=== PATIENT | male | born 1995 | race Caucasian/White ===

== ENCOUNTER 2025-03-09 04:55 | Inpatient (IN) | payer OTHER, SELFPAY ==
[2025-03-09] VITALS (17 sets, daily range): BP systolic 91–121; BP diastolic 56–79; PULSE 64–97; RESP 11–20; TEMP 36.2–37.1; O2SAT 92–99; BMI 35.8
--- NOTE | ~2025-03-09 | CT_ITS ---
CLINICAL HISTORY: fall, facial trauma CT maxillofacial without contrast Comparison: None provided Findings: No acute fractures. No dislocations. Temporomandibular joints are intact. Polypoid mucosal thickening within the bilateral maxillary sinuses. Mild mucosal thickening within the left frontal sinus extending into the anterior left ethmoid air cells. Remaining paranasal sinuses are predominantly clear. No mastoid effusions. Unremarkable orbital contents. Visualized intracranial contents are within normal limits. No foreign bodies. IMPRESSION: No facial fractures. Orbits are intact. This document has been electronically signed by: Luzma oSsa MD on 03/09/2025 07:50:59
--- NOTE | ~2025-03-09 | CT_ITS ---
CLINICAL HISTORY: fall with head strike CT head without contrast Comparison: None provided Findings: No intra-axial mass, midline shift, hydrocephalus, or acute hemorrhage. No significant atrophy-like change or white matter disease. Left supraorbital scalp contusion. There is no sinus or mastoid fluid. The orbits are unremarkable. There is no acute fracture. IMPRESSION: 1. Left supraorbital scalp contusion. No intracranial hemorrhage or skull fracture. This document has been electronically signed by: Luzma Sosa MD on 03/09/2025 08:24:52
--- NOTE | ~2025-03-09 | CT_ITS ---
CLINICAL HISTORY: fall with head strike CT cervical spine without contrast Comparison: None provided Findings: Vertebral alignment is within normal limits. Mild multilevel disc height loss with reactive endplate change. No significant facet hypertrophy. No acute fractures or dislocations. No acute findings on limited view of the intracranial contents. No cervical fluid collections or masses. No consolidation or effusion at the lung apices. IMPRESSION: No acute findings. This document has been electronically signed by: Luzma Sosa MD on 03/09/2025 08:31:52
--- NOTE | 2025-03-09 05:14 | ECG_ITS ---
Test Reason : fall Blood Pressure : */* mmHG Vent. Rate : 77 BPM Atrial Rate : 77 BPM P-R Int : 198 ms QRS Dur : 100 ms QT Int : 392 ms P-R-T Axes : 48 67 55 degrees QTcB Int : 443 ms Normal sinus rhythm Normal ECG No previous ECGs available Referred By: Magda Saez Electronically Signed By: Jamal Em
[2025-03-09 05:31] LABS: MANUAL DIFF FLAG NO
[2025-03-09 05:33] LABS: Hematocrit 38.1 % (42.0-52.0); Hemoglobin 14.3 g/dl (14.0-18.0); Imm Gran Abs Auto 0.03 X10*3/uL (0.00-0.03); Imm Gran Pct Auto 0.3 % (0.0-0.4); Lymphocytes Absolute Auto 2.2 X10*3/uL (1.2-4.9); Mean Corpuscular HGB Conc 37.5 g/dl (31.0-36.0); Mean Corpuscular Hemoglobin 30.4 pg (27.0-33.0); Mean Corpuscular Volume 80.9 fL (80.0-98.0); NRBC Abs Auto 0.000 X10*3/uL (0.0-0.012); NRBC Pct Auto 0.0 /100WBC (0.0-0.2); Platelet Count 248 X10*3/uL (160-400); Red Blood Count 4.71 X10*6/uL (4.60-5.80); White Blood Count 9.3 X10*3/uL (4.8-10.8)
--- NOTE | 2025-03-09 05:34 | PC.NURSE ---
Patient JUANCHO from [place], staff found patient face down in hallway after hearing loud bang, possible seizure activity post fall? staff at bedside but did not see event, no seizure hx, no thinners, was manic and A/O prior to fall. Patient is awake but nonverbal at this time. C collar in place by EMS. Patient placed on tobacco packer, HR 81, NSR, EKG completed by ED apprentice instrument technician, 20 G IV line established in R AC, labs drawn and sent to lab for processing. Seizure pads placed for safety. Staff member from [place] at bedside.
[2025-03-09 06:02] LABS: Alanine Aminotransferase 17 U/L (0-40); Albumin Level 3.9 g/dL (3.5-5.0); Alkaline Phosphatase 69 U/L (39-117); Anion Gap 17 (12-20); Aspartate Amino Transferase 50 U/L (5-37); Blood Urea Nitrogen 6 mg/dL (9-16); Calcium 8.0 mg/dL (8.4-10.2); Carbon Dioxide 19 mmol/L (22-29); Chloride 85 mmol/L (96-108); Creatinine Clr Calc Pharmacy 140.3; Estimated Glomerular Filt Rate > 60; Potassium 3.9 mmol/L (3.3-5.1); Sodium 117 mmol/L (135-145); Total Protein 6.3 g/dL (6.5-8.0)
--- NOTE | 2025-03-09 06:33 | PC.NURSE ---
Patient noted to have episode of vomiting large amount of clear vomitus. Ed provider informed, patient medicated with Zofran 4 mg IVP per NOV.
--- NOTE | 2025-03-09 06:46 | ED_ITS ---
HPI - Seizure General Chief Complaint: Fall Stated Complaint: unwit fall sz hematoma Lside head, manic nonverbal Time Seen by Provider: 03/09/25 05:02 Source: EMS, RN notes reviewed and other (Staff worker at [facility]) Mode of arrival: EMS Limitations: altered mental status History of Present Illness ED Provider: Dr. Magda Saez HPI Narrative: 29-year-old male presenting via EMS from [place] after being found down in a hallway after potential seizure. He has a large hematoma on his forehead. Seizure was not witnessed by staff. He has no history of seizure disorder. Only history is bipolar disorder he takes multiple medications for this. Patient had been manic according to the staff at the bedside now. His manic behavior involves physically moving around the room with psychomotor agitation, doing pushups and other workouts. Otherwise there is no reported illness. No reported changes in his eating habits or drinking habits. No chance of drug or alcohol use according to the staff member. Patient is in a locked unit that has no visitors. He has had no visitors in 5 months. Patient is able to tell me that he does not feel like his teeth are chipped. Denies pain anywhere. Related Data Allergies Allergy/AdvReac Type Severity Reaction Status Date / Time No Known Allergies Allergy Verified 03/09/25 05:12 Review of Systems 2 Review of Systems: Yes all other systems are reviewed and are negative PMFSH Past Medical History Source: unable to obtain (Secondary to patient's clinical condition) Social History Social History Advance Directives: No Advance Directives Information Provided: No Physical Exam 2 Vital Signs: Vital Signs: Last Vital Signs Temp 98.3 F 03/09/25 06:46 Pulse 76 03/09/25 06:46 Resp 11 L 03/09/25 06:46 BP 117/77 03/09/25 06:46 Pulse Ox 97 03/09/25 06:46 O2 Del Method Room Air 03/09/25 06:46 BMI result Body Mass Index 35.8 Medications Administered Discontinued Medications Generic Name Dose Route Start Last Admin Trade Name Freq PRN Reason Stop Dose Admin Ondansetron HCl 4 mg 03/09/25 06:28 03/09/25 06:44 Ondansetron Hcl 4 Mg/2 Ml Vial IVPUSH 03/09/25 06:29 4 mg ONCE ONE Administration Medical Decision Making Medical Decision Making [facility] Narrative: Patient presents today with a chief complaint of altered mental status. Differential diagnosis for AMS is incredibly broad and includes seizure with postictal state, infection, intracranial process such as hemorrhage, stroke or mass, electrolyte abnormality, hypercarbia, hypoxia, toxic encephalopathy, among many others. Broad-based workup was initiated to further evaluate the etiology of patient's symptoms based on the above exam and history. 6:00 a.m. patient noted to have significantly low sodium level which certainly could be the cause of his seizure activity today. He takes no medications that would cause hyponatremia, has no evidence of renal failure. Question for potential polydipsia although the staff members adamant that the patient has not been drinking a ton of water lately. Patient will need admission to the ICU. Awaiting CT brain, max face and neck prior to admission. 7:15 a.m. case discussed with roofer apprentice on-call, Dr. Hidalgo, who accepts patient for admission to the ICU. Admitted in guarded condition. Differential Diagnosis Differential Diagnoses: The differential diagnosis associated with the presentation includes (As above) Admission/Observation Consideration of admission/observation: Escalation of care including admission/observation considered Consult Healthcare Provider Management of the patient was discussed with: Catalyst Unit Operator (Director Stars, Dr. Hidalgo) Lab Data [facility] Lab Attestation statement: I reviewed the patient's lab results. Notable hyponatremia with normal kidney function. Urine lytes added on. Slightly elevated white blood cell count and lactic acidosis likely secondary to seizure activity today. No evidence of infection otherwise. 03/09/25 05:26 03/09/25 05:26 Labs: Lab Results 03/09/25 Range/Units 05:26 WBC 9.3 (4.8-10.8) X10*3/uL RBC 4.71 (4.60-5.80) X10*6/uL Hgb 14.3 (14.0-18.0) g/dl Hct 38.1 L (42.0-52.0) % MCV 80.9 (80.0-98.0) fL MCH 30.4 (27.0-33.0) pg MCHC 37.5 H (31.0-36.0) g/dl RDW 12.5 (11.0-16.0) % Plt Count 248 (160-400) X10*3/uL MPV 8.7 L (9.4-12.4) fL Immature Gran % (Auto) 0.3 (0.0-0.4) % Neut % (Auto) 67.9 (45-73) % Lymph % (Auto) 23.6 (20-40) % [place] % (Auto) 5.6 (2-11) % Eos % (Auto) 2.2 (0-4) % Baso % (Auto) 0.4 (0-2) % Lymph # (Auto) 2.2 (1.2-4.9) X10*3/uL [place] # (Auto) 0.5 (0.1-1.2) X10*3/uL Eos # (Auto) 0.2 (0.0-0.4) X10*3/uL Baso # (Auto) 0.0 (0.0-0.2) X10*3/uL Abs Immat Gran (auto) 0.03 (0.00-0.03) X10*3/uL Absolute Neuts (auto) 6.3 (2.0-8.3) x10*3/uL Absolute Nucleated RBC 0.000 (0.0-0.012) X10*3/uL Nucleated RBC % (auto) 0.0 (0.0-0.2) /100WBC Sodium 117 L* (135-145) mmol/L Potassium 3.9 (3.3-5.1) mmol/L Chloride 85 L (96-108) mmol/L Carbon Dioxide 19 L (22-29) mmol/L Anion Gap 17 (12-20) BUN 6 L (9-16) mg/dL Creatinine 0.87 (0.5-1.4) mg/dL Estim Creat Clear Calc 140.3 Estimated GFR > 60 Random Glucose 73 (60-115) mg/dL Lactic Acid 3.8 H* (0.5-2.0) mmol/L Calcium 8.0 L (8.4-10.2) mg/dL Total Bilirubin 1.3 H (0.0-1.0) mg/dL AST 50 H (5-37) U/L ALT 17 (0-40) U/L Alkaline Phosphatase 69 (39-117) U/L Total Protein 6.3 L (6.5-8.0) g/dL Albumin 3.9 (3.5-5.0) g/dL Ethyl Alcohol < 10 mg/dL Independent Interpretation I performed an independent interpretation of an: CT Scan Interpretation: I see no evidence of acute traumatic process in the brain, face or neck. My independent interpretation of the ECG reveals normal sinus rhythm with rate of 77, normal axis, normal intervals, no ST elevations or depressions to suggest ischemic changes, no previous for comparison Radiology Impression Discussion of test interpretation with radiology: I have reviewed the radiologist's reading. Independent Historian Clinical information obtained from an independent historian. History obtained from or confirmed by: EMS and Other (culinary worker) Chronic Conditions Patient?s care impacted by: Diabetes and Other (Bipolar disorder) Social Determinants Patient?s care significantly limited by Social Determinants of Health including: Problems related to primary support group and Other Social Determinant of Health Critical Care Time Critical Care Time Critical Care Time: Yes Total Critical Care Time: 35 Attestation: Time is exclusive of separately billable procedures. Time includes: direct patient care, patient reassessment, coordination of patient care, interpretation of data (laboratory data, pulse oximetry, arterial blood gases and chest xrays), review of patient's medical records, medical consultation and documentation of patient care. Procedures excluded from critical care time: central intravenous line placement and electrocardiography. Discharge Plan Discharge Clinical Impression: Seizure, Acute hyponatremia, Contusion of forehead, Acute encephalopathy Patient Disposition: Admitted As Inpatient Print Language: Armenian
[2025-03-09 07:27] LABS: Procalcitonin 0.02 ng/mL
[2025-03-09 07:30] LABS: Reflex Lactate? Lactic Acid Added
--- NOTE | 2025-03-09 07:31 | PC.NURSE ---
This Rn assumed care of juan @ 0700. Patient remains in C-collar, Patient awake but non verbal. 20G placed in LAC. Lactic drawn and sent. [place] cath placed, waiting for urine sample.
[2025-03-09 07:58] LABS: Magnesium 1.6 mg/dL (1.6-2.6)
[2025-03-09 08:49] LABS: Osmolality, Serum 247 mosm/kg (281-305)
[2025-03-09 08:51] LABS: Anion Gap 11 (12-20); Blood Urea Nitrogen 6 mg/dL (9-16); Calcium 8.3 mg/dL (8.4-10.2); Carbon Dioxide 25 mmol/L (22-29); Chloride 87 mmol/L (96-108); Creatinine Clr Calc Pharmacy 160.7; Estimated Glomerular Filt Rate > 60; Potassium 3.4 mmol/L (3.3-5.1); Uric Acid 6.9 mg/dL (3.4-7.0); ~Lactic Acid-LAB USE ONLY 1.0 mmol/L (0.5-2.0)
[2025-03-09 08:53] LABS: Sodium 120 mmol/L (135-145)
--- NOTE | 2025-03-09 09:31 | PHA.MEDREC ---
Addendum entered by Edgar Del Cid RPh 03/09/25 09:52: (Facility is [place]) MED REC REVIEWED BY [facility]. Original Note: Pharmacy Consult ? Medication Reconciliation Pharmacy has completed the medication reconciliation. Utilized list from facility to confirm med rec.
--- NOTE | 2025-03-09 10:11 | PC.NURSE ---
Patient requiring urine samples, no urine produced in [place] cath. Notified hospital inten. Received order to straight cath patient. Patient straight cathed for 700ml pale yellow urine no odor. Samples collected/sent. [place] cath put back on. Patient remains awake but non responsive.
--- NOTE | 2025-03-09 10:19 | PC.NURSE ---
Patient assessed by provider, c collar removed. Sitter from [place] remains at bed side
[2025-03-09 10:36] LABS: Cannabinoid Screen Urine Not Detected (Not Detect)
--- NOTE | 2025-03-09 11:39 | PC.NURSE ---
Guardian Megan Goldsmith called to get update on patient. Megan was updated on current plan, and will be in to see him
--- NOTE | 2025-03-09 11:57 | PM.PSYCN ---
History of Present Illness Date of Service: 03/10/2025 Chief Complaint: hyponatremia Requesting physician: Ayan Hidalgo Discussed with referring provider: Yes Sources of Information: patient interviewed, chart reviewed and crisis/core team assessment reviewed HPI Narrative: St Baez is a 29 year-old male with hx of schizophrenia who was sent to [facility] due to collapsing after having what seem to be a seizure. In the ED pertinent labs included cbc mostly unremarkable, CMP with hyponatremia initially 117, Cl 85, BUN 6, Cr. 0.87, creatinine clearance 140. LFT-AST 50, ALT 17, total bilirubin 1.3. Serum osmolality 247. Lactic acid elevated 3.8. Urine osmolality 119. Head CT and spinal CT did not show fractures nor acute findings. Pt seen in the ED. He is alert, and awake but non verbal. He has not talk since arrival to the ED. 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 He has been treated for paranoid delusions, psychosis. He apparently had decreased oral intake but unclear fluid intake. He was on combination of lexapro, wellbutrin, seroquel and abilify. He has a legal guardian, who was present at time of this assessment, Megan. She reported pt with hx of paranoid delusions, usually talkative and his current presentation (non verbal) not his baseline. Past Psychiatric History: Inpt: not much of psychiatric hx is known other than he is currently on sect 16c admitted [facility]. Past med trials: lexapro, wellbutrin, abilify. [facility] Medical History (Updated 03/10/25 @ 11:28 by Evelyn Canales NP) Bipolar disorder Diagnostics Vital Signs (24Hr): Vital Signs - 24 hr 03/09/25 05:06 03/09/25 05:10 03/09/25 06:46 Temperature 97.9 F 98.7 F 98.3 F Pulse Rate 79 97 76 Respiratory Rate 16 16 11 L Blood Pressure 121/75 121/75 117/77 Pulse Oximetry 97 97 97 Oxygen Delivery Method Room Air Room Air Room Air 03/09/25 07:06 03/09/25 10:17 Temperature Pulse Rate 75 73 Respiratory Rate 14 14 Blood Pressure 115/72 113/68 Pulse Oximetry 98 99 Oxygen Delivery Method Room Air Room Air BMI result Body Mass Index 35.8 Labs 03/09/25 05:26 03/10/25 08:51 Labs: Laboratory Results - last 48 hr 03/09/25 03/09/25 03/09/25 05:26 08:14 08:19 WBC 9.3 RBC 4.71 Hgb 14.3 Hct 38.1 L MCV 80.9 MCH 30.4 MCHC 37.5 H RDW 12.5 Plt Count 248 MPV 8.7 L Immature Gran % (Auto) 0.3 Neut % (Auto) 67.9 Lymph % (Auto) 23.6 [place] % (Auto) 5.6 Eos % (Auto) 2.2 Baso % (Auto) 0.4 Lymph # (Auto) 2.2 [place] # (Auto) 0.5 Eos # (Auto) 0.2 Baso # (Auto) 0.0 Abs Immat Gran (auto) 0.03 Absolute Neuts (auto) 6.3 Absolute Nucleated RBC 0.000 Nucleated RBC % (auto) 0.0 Sodium 117 L* 120 L* Potassium 3.9 3.4 Chloride 85 L 87 L Carbon Dioxide 19 L 25 Anion Gap 17 11 L BUN 6 L 6 L Creatinine 0.87 0.76 Estim Creat Clear Calc 140.3 160.7 Estimated GFR > 60 > 60 Random Glucose 73 82 Osmolality 247 L Lactic Acid 3.8 H* Lactic Acid F/U @ 2Hr 1.0 Uric Acid 6.9 Calcium 8.0 L 8.3 L Magnesium 1.6 Total Bilirubin 1.3 H AST 50 H ALT 17 Alkaline Phosphatase 69 Total Protein 6.3 L Albumin 3.9 Procalcitonin 0.02 Urine Osmolality Ur Random Sodium Ur Random Potassium Ur Random Chloride Urine Opiates Screen Ur Buprenorphine Scrn Ur Oxycodone Screen Urine Methadone Screen Urine Fentanyl Screen Ur Barbiturates Screen Ur Phencyclidine Scrn Ur Amphetamines Screen U Benzodiazepines Scrn Urine Cocaine Screen U Marijuana (THC) Screen Ethyl Alcohol < 10 03/09/25 03/09/25 10:05 10:06 WBC RBC Hgb Hct MCV MCH MCHC RDW Plt Count MPV Immature Gran % (Auto) Neut % (Auto) Lymph % (Auto) [place] % (Auto) Eos % (Auto) Baso % (Auto) Lymph # (Auto) [place] # (Auto) Eos # (Auto) Baso # (Auto) Abs Immat Gran (auto) Absolute Neuts (auto) Absolute Nucleated RBC Nucleated RBC % (auto) Sodium Potassium Chloride Carbon Dioxide Anion Gap BUN Creatinine Estim Creat Clear Calc Estimated GFR Random Glucose Osmolality Lactic Acid Lactic Acid F/U @ 2Hr Uric Acid Calcium Magnesium Total Bilirubin AST ALT Alkaline Phosphatase Total Protein Albumin Procalcitonin Urine Osmolality 119 L Ur Random Sodium 32.0 Ur Random Potassium 7.6 Ur Random Chloride < 20.0 Urine Opiates Screen Not Detected Ur Buprenorphine Scrn Not Detected Ur Oxycodone Screen Not Detected Urine Methadone Screen Not Detected Urine Fentanyl Screen Not Detected Ur Barbiturates Screen Not Detected Ur Phencyclidine Scrn Not Detected Ur Amphetamines Screen Not Detected U Benzodiazepines Scrn Not Detected Urine Cocaine Screen Not Detected U Marijuana (THC) Screen Not Detected Ethyl Alcohol Mental Status Exam Mental Status Exam Narrative: Pt is alert, non verbal in no acute distress. Interview and mental status examination limited due mostly non verbal but fully awake. Medications Medications Current Medications Aripiprazole (Aripiprazole 10 Mg Tablet) 25 mg PO BEDTIME AUGUSTIN Enoxaparin Sodium (Enoxaparin Sodium 40 Mg/0.4 Ml Syringe) 40 mg SUBCUT Q24H AUGUSTIN Last Admin: 03/09/25 10:47 Dose: 40 mg Escitalopram Oxalate (Escitalopram Oxalate 20 Mg Tablet) 20 mg PO BEDTIME AUGUSTIN Famotidine (Famotidine/Pf 20 Mg/2 Ml Vial) 20 mg IVPUSH BID AUGUSTIN Quetiapine Fumarate (Quetiapine Fumarate 50 Mg Tablet) 50 mg PO BEDTIME AUGUSTIN Allergies Allergies Allergy/AdvReac Type Severity Reaction Status Date / Time No Known Allergies Allergy Verified 03/09/25 05:12 Assessment & Plan Assessment & Plan (1) Schizophrenia, paranoid: Status: Acute Code(s): F20.0 - Paranoid schizophrenia Plan Mr. Reid is a 29 year-old male with hx of schizophrenia paranoid type currently receiving treatment at [facility] since 09/2024. Per staff he was his usual self up until this morning when he woke up, collapsed and had a seizure. In the ED, pt with hyponatremia hypotonic. His urine osmolality does not seem to suggest mechanism by which medication would cause hyponatremia. 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 wellbutrin held due to lowering seizure threshold. continue other medications as prescribed including abilify, lexapro, seroquel. Total time managing care of this patient today ____ minutes.
--- NOTE | 2025-03-09 12:01 | PC.NURSE ---
Attempted to call and give report to Enmanuel NOBLE. Enmanuel currently working on new admission who just arrived in ICU. Will call back at later time to give report
--- NOTE | 2025-03-09 12:36 | P.HPCC_ITS ---
History of Present Illness Date of Service: 03/09/25 Chief Complaint: Seizures 29-year-old male with significant history of bipolar disorder, other psychiatric illness and no medical illness, no history of seizures has been managed for past few days being hyperactive. This morning around 04:00 the tech heard a loud sound from him falling on his face so as to his room when he had a seizures that lasted about 2 minutes and stopped by itself. He has a small laceration on his forehead so was brought into the ED. In the ED his sodium was found to be 117 so MICU was consulted Review of Systems 2 Review of Systems: Patient confused, unable to obtain further history PMFSH Social History Social History Advance Directives: No Advance Directives Information Provided: No Meds Allergies Allergy/AdvReac Type Severity Reaction Status Date / Time No Known Allergies Allergy Verified 03/09/25 05:12 Active Medications: Current Medications Aripiprazole (Aripiprazole 10 Mg Tablet) 25 mg PO BEDTIME AUGUSTIN Enoxaparin Sodium (Enoxaparin Sodium 40 Mg/0.4 Ml Syringe) 40 mg SUBCUT Q24H AUGUSTIN Last Admin: 03/09/25 10:47 Dose: 40 mg Famotidine (Famotidine/Pf 20 Mg/2 Ml Vial) 20 mg IVPUSH BID AUGUSTIN Quetiapine Fumarate (Quetiapine Fumarate 50 Mg Tablet) 50 mg PO BEDTIME [facility] Home Medications ?Medication ?Instructions ?Recorded ?Confirmed ?Last Taken ?Type acetaminophen 325 mg tablet 650 mg PO Q6H PRN Pain (Sc rachel 03/09/25 03/09/25 Unknown History Score 1-3) aluminum-mag hydroxide-simethicone 30 ml PO BID PRN Dy spepsia 03/09/25 03/09/25 Unknown History 200 mg-200 mg-20 mg/5 mL oral susp (Antacid) aripiprazole 10 mg tablet 25 mg PO BEDTIME 03/09/2503/08/25 History bismuth subsalicylate 262 mg 1 tab PO Q4H PRN Dyspepsi a 03/09/25 03/09/25 Unknown History chewable tablet (Bismuth) bupropion HCl 150 mg 24 hr tablet, 150 mg PO DAILY 03/2703/09/25 03/08/25 History extended release bupropion HCl 300 mg 24 hr tablet, 300 mg PO DAILY 03/2703/09/25 03/08/25 History extended release escitalopram oxalate 20 mg tablet 20 mg PO BEDTIME 03/2703/09/25 03/08/25 History hydroxyzine pamoate 50 mg capsule 50 mg PO Q8H PRN Anx iety 03/09/25 03/09/25 Unknown History melatonin 3 mg tablet 3 mg PO BEDTIME 03/09/2503/2703/08/25 History metformin 1,000 mg tablet 1,000 mg PO BIDWM 03/09/25 0 03/09/25 03/08/25 History multivitamin 1 tab PO DAILY 03/09/25 07/03/2703/08/25 History quetiapine 50 mg tablet 50 mg PO BEDTIME 03/09/2503/08/25 History Physical Exam 2 Vital Signs: Vital Signs: Last Vital Signs Temp 98.3 F 03/09/25 06:46 Pulse 73 03/09/25 10:17 Resp 14 03/09/25 10:17 BP 113/68 03/09/25 10:17 Pulse Ox 99 03/09/25 10:17 O2 Del Method Room Air 03/09/25 10:17 BMI result Body Mass Index 35.8 General: Not in acute distress, slightly confused, has a hematoma in the forehead Nutritional Appearance: well nourished and overweight Eyes: appearance normal, both eyes and all related structures; Alignment and Position: alignment normal and position normal Neck: No lymphadenopathy, no thyromegaly Resp: bilateral air entry equal, no added sounds present Cardio: Regular rate, regular rhythm; Heart sounds: S1 normal heart sound present and S2 normal heart sound present GI: soft, nontender, no guarding, no hepatosplenomegaly : bladder normal to inspection, bladder normal to palpation, no renal angle tenderness Skin: no rashes or lesions noted and elasticity normal Neuro: No focal deficit, slight confusion present unsure if this is his baseline Results Labs 03/09/25 05:26 03/09/25 08:19 Labs: Laboratory Results - last 24 hr 03/09/25 03/09/25 03/09/25 05:26 08:14 08:19 MCV 80.9 MCH 30.4 MCHC 37.5 H RDW 12.5 Plt Count 248 MPV 8.7 L Immature Gran % (Auto) 0.3 Neut % (Auto) 67.9 Lymph % (Auto) 23.6 [place] % (Auto) 5.6 Eos % (Auto) 2.2 Baso % (Auto) 0.4 Lymph # (Auto) 2.2 [place] # (Auto) 0.5 Eos # (Auto) 0.2 Baso # (Auto) 0.0 Abs Immat Gran (auto) 0.03 Absolute Neuts (auto) 6.3 Absolute Nucleated RBC 0.000 Nucleated RBC % (auto) 0.0 Anion Gap 17 11 L Estim Creat Clear Calc 140.3 160.7 Estimated GFR > 60 > 60 Random Glucose 73 82 Osmolality 247 L Lactic Acid 3.8 H* Lactic Acid F/U @ 2Hr 1.0 Uric Acid 6.9 Calcium 8.0 L 8.3 L Magnesium 1.6 Total Bilirubin 1.3 H AST 50 H ALT 17 Alkaline Phosphatase 69 Total Protein 6.3 L Albumin 3.9 Procalcitonin 0.02 Urine Osmolality Ur Random Sodium Ur Random Potassium Ur Random Chloride Urine Opiates Screen Ur Buprenorphine Scrn Ur Oxycodone Screen Urine Methadone Screen Urine Fentanyl Screen Ur Barbiturates Screen Ur Phencyclidine Scrn Ur Amphetamines Screen U Benzodiazepines Scrn Urine Cocaine Screen U Marijuana (THC) Screen Ethyl Alcohol < 10 03/09/25 03/09/25 10:05 10:06 MCV MCH MCHC RDW Plt Count MPV Immature Gran % (Auto) Neut % (Auto) Lymph % (Auto) [place] % (Auto) Eos % (Auto) Baso % (Auto) Lymph # (Auto) [place] # (Auto) Eos # (Auto) Baso # (Auto) Abs Immat Gran (auto) Absolute Neuts (auto) Absolute Nucleated RBC Nucleated RBC % (auto) Anion Gap Estim Creat Clear Calc Estimated GFR Random Glucose Osmolality Lactic Acid Lactic Acid F/U @ 2Hr Uric Acid Calcium Magnesium Total Bilirubin AST ALT Alkaline Phosphatase Total Protein Albumin Procalcitonin Urine Osmolality 119 L Ur Random Sodium 32.0 Ur Random Potassium 7.6 Ur Random Chloride < 20.0 Urine Opiates Screen Not Detected Ur Buprenorphine Scrn Not Detected Ur Oxycodone Screen Not Detected Urine Methadone Screen Not Detected Urine Fentanyl Screen Not Detected Ur Barbiturates Screen Not Detected Ur Phencyclidine Scrn Not Detected Ur Amphetamines Screen Not Detected U Benzodiazepines Scrn Not Detected Urine Cocaine Screen Not Detected U Marijuana (THC) Screen Not Detected Ethyl Alcohol Assessment and Plan (1) Acute hyponatremia: Status: Acute (2) Acute encephalopathy: Status: Acute (3) Seizure: Status: Acute Plan Acute encephalopathy: Possibly secondary to postictal status Has 1 episode of seizure, we will continue to closely monitor to see any further seizures. We will restart all of his home medication including quetiapine and aripiprazole except for the bupropion which decreases seizure threshold Acute hyponatremia: possibly secondary to increase in water intake as his urine sodium is less than 20, urine osm 120. Presented with sodium of 117 but given his history of seizures and select confusion we will let it improve slightly faster than needed. repeat sodium 120 at 8AM. Will withold any 3% NaCl infusion. will closely monitor his sodium every 4 hrs. Prophylaxis: Lovenox
--- NOTE | 2025-03-09 13:08 | PC.NURSE ---
report given to REAL Singer in ICU at this time.
[2025-03-09 13:24] LABS: Anion Gap 12 (12-20); Blood Urea Nitrogen 6 mg/dL (9-16); Calcium 8.5 mg/dL (8.4-10.2); Carbon Dioxide 24 mmol/L (22-29); Chloride 90 mmol/L (96-108); Creatinine Clr Calc Pharmacy 160.7; Estimated Glomerular Filt Rate > 60; Potassium 3.8 mmol/L (3.3-5.1); Sodium 122 mmol/L (135-145)
--- NOTE | 2025-03-09 13:47 | PC.NURSE ---
patient transferred to ICU w/ this RN, darrel, sitter and security d/t pt residing on a section 21.
[2025-03-09 17:08] LABS: Anion Gap 17 (12-20); Blood Urea Nitrogen 6 mg/dL (9-16); Calcium 8.7 mg/dL (8.4-10.2); Carbon Dioxide 17 mmol/L (22-29); Chloride 96 mmol/L (96-108); Creatinine Clr Calc Pharmacy 174.4; Estimated Glomerular Filt Rate > 60; Potassium 4.9 mmol/L (3.3-5.1); Sodium 125 mmol/L (135-145)
--- NOTE | 2025-03-09 18:32 | PC.NURSE ---
See MAR for medications and drips. see shift assessment for full head to toe. on arrival patient awake alert to self, confused on date, time and location. patient in no distress, with no pain, on room air. cooperative with care and quiet. sitter and camera in the room. patient refused meal. airloss bed and SCD boots in palce, patient uses urinal and repositions self. spent the majority of the shift sleeping. hospital course uncomplicated today.
[2025-03-09 21:01] LABS: Anion Gap 9 (12-20); Blood Urea Nitrogen 8 mg/dL (9-16); Calcium 8.8 mg/dL (8.4-10.2); Carbon Dioxide 26 mmol/L (22-29); Chloride 95 mmol/L (96-108); Creatinine Clr Calc Pharmacy 145.4; Estimated Glomerular Filt Rate > 60; Potassium 3.8 mmol/L (3.3-5.1); Sodium 126 mmol/L (135-145)
[2025-03-10] VITALS (20 sets, daily range): BP systolic 96–127; BP diastolic 51–97; PULSE 53–95; RESP 13–25; TEMP 36.3–37.2; O2SAT 94–99; BMI 36.7
[2025-03-10 01:20] LABS: Anion Gap 12 (12-20); Blood Urea Nitrogen 7 mg/dL (9-16); Calcium 8.9 mg/dL (8.4-10.2); Carbon Dioxide 23 mmol/L (22-29); Chloride 98 mmol/L (96-108); Creatinine Clr Calc Pharmacy 150.7; Estimated Glomerular Filt Rate > 60; Potassium 3.8 mmol/L (3.3-5.1); Sodium 129 mmol/L (135-145)
--- NOTE | 2025-03-10 01:38 | PC.NURSE ---
Addendum entered by Dnonie Powers RN 03/10/25 06:23: SEIZURE PADS REMAIN IN PLACE ON BED...NO SEIZURE ACTIVITY OVERNIGHT Addendum entered by Donnie Powers RN 03/10/25 06:20: AM SODIUM= 131....PROVIDER AWARE Addendum entered by Donnie Powers RN 03/10/25 02:01: aunt/guardian juanita updated 9pm per request via telephone Original Note: CARE ASSUMED 7PM..NAPPING..EASILY AWAKE TO VERBAL STIMULI..SPEECH SLOW BUT CLEAR..ORIENTED TO PERSON ONLY..FOLLOWS SIMPLE COMMANDS..DENIES PAIN..REPOSITIONS SELF AD-ELIZABETH IN BED...SWALLOWED HS PILLS WITH H20 WITHOUT DIFFICULTY..SERIAL CHEMISTRY LABWORK DRAWN..D5W 75 CC/HR STARTED 6PM PER SHIFT REPORT...SODIUM LEVEL UP TO 129..PER ICU PA D5W INCREASED TO 100 CC/HR AT 01:30...NEUROLOGIC STATUS UNCHANGED....PATIENT'S AUNT/GUARDIAN JUANITA PROVIDED WITH UPDATE PER REQUEST PM...NSR..NO ECTOPY
[2025-03-10 05:56] LABS: Anion Gap 13 (12-20); Blood Urea Nitrogen 7 mg/dL (9-16); Calcium 8.7 mg/dL (8.4-10.2); Carbon Dioxide 23 mmol/L (22-29); Chloride 99 mmol/L (96-108); Creatinine Clr Calc Pharmacy 138.9; Estimated Glomerular Filt Rate > 60; Potassium 3.6 mmol/L (3.3-5.1); Sodium 131 mmol/L (135-145)
--- NOTE | 2025-03-10 09:01 | P.PNCC_ITS ---
Subjective Subjective Date of Service: 03/10/25 Interval History: Sodium increased from 117 to 125 yesterday evening, was started on D5 water drip at 75 cc/hour which was further increased to 150 cc/hour overnight as the sodium continue to increase. This morning the sodium is 131, patient is alert and oriented and no neuro deficit Critical Care Time (minutes): 35 Physical Exam 2 Vital Signs: Vital Signs: Last Vital Signs Temp 98.5 F 03/10/25 08:00 Pulse 55 03/10/25 08:00 Resp 18 03/10/25 08:00 BP 113/71 03/10/25 08:00 Pulse Ox 97 03/10/25 08:00 O2 Del Method Room Air 03/10/25 08:00 BMI result Body Mass Index 36.7 General: Young male in no acute distress, comfortably sleeping in the bed Nutritional Appearance: well nourished and overweight Eyes: appearance normal, both eyes and all related structures; Alignment and Position: alignment normal and position normal Neck: No lymphadenopathy, no thyromegaly Resp: bilateral air entry equal, no added sounds present Cardio: Regular rate, regular rhythm; Heart sounds: S1 normal heart sound present and S2 normal heart sound present GI: soft, nontender, no guarding, no hepatosplenomegaly : bladder normal to inspection, bladder normal to palpation, no renal angle tenderness Skin: no rashes or lesions noted and elasticity normal Neuro: oriented to person, oriented to place, oriented to time and moves all extremities, no focal deficits Objective Data Labs 03/09/25 05:26 03/10/25 08:51 Labs: Laboratory Results - last 24 hr 03/09/25 03/09/25 03/09/25 10:05 10:06 13:04 Sodium 122 L Potassium 3.8 Chloride 90 L Carbon Dioxide 24 Anion Gap 12 BUN 6 L Creatinine 0.76 Estim Creat Clear Calc 160.7 Estimated GFR > 60 Random Glucose 80 Calcium 8.5 Urine Osmolality 119 L Ur Random Sodium 32.0 Ur Random Potassium 7.6 Ur Random Chloride < 20.0 Urine Opiates Screen Not Detected Ur Buprenorphine Scrn Not Detected Ur Oxycodone Screen Not Detected Urine Methadone Screen Not Detected Urine Fentanyl Screen Not Detected Ur Barbiturates Screen Not Detected Ur Phencyclidine Scrn Not Detected Ur Amphetamines Screen Not Detected U Benzodiazepines Scrn Not Detected Urine Cocaine Screen Not Detected U Marijuana (THC) Screen Not Detected 03/09/25 03/09/25 03/10/25 16:44 20:28 00:37 Sodium 125 L 126 L 129 L Potassium 4.9 D 3.8 D 3.8 Chloride 96 95 L 98 Carbon Dioxide 17 L 26 23 Anion Gap 17 9 L 12 BUN 6 L 8 L 7 L Creatinine 0.70 0.84 0.81 Estim Creat Clear Calc 174.4 145.4 150.7 Estimated GFR > 60 > 60 > 60 Random Glucose 76 93 100 Calcium 8.7 8.8 8.9 Urine Osmolality Ur Random Sodium Ur Random Potassium Ur Random Chloride Urine Opiates Screen Ur Buprenorphine Scrn Ur Oxycodone Screen Urine Methadone Screen Urine Fentanyl Screen Ur Barbiturates Screen Ur Phencyclidine Scrn Ur Amphetamines Screen U Benzodiazepines Scrn Urine Cocaine Screen U Marijuana (THC) Screen 03/10/25 04:46 Sodium 131 L Potassium 3.6 Chloride 99 Carbon Dioxide 23 Anion Gap 13 BUN 7 L Creatinine 0.89 Estim Creat Clear Calc 138.9 Estimated GFR > 60 Random Glucose 97 Calcium 8.7 Urine Osmolality Ur Random Sodium Ur Random Potassium Ur Random Chloride Urine Opiates Screen Ur Buprenorphine Scrn Ur Oxycodone Screen Urine Methadone Screen Urine Fentanyl Screen Ur Barbiturates Screen Ur Phencyclidine Scrn Ur Amphetamines Screen U Benzodiazepines Scrn Urine Cocaine Screen U Marijuana (THC) Screen Progress Note: A&P Assessment and plan (1) Schizophrenia, paranoid: Status: Acute (2) Acute hyponatremia: Status: Acute (3) Acute encephalopathy: Status: Acute (4) Seizure: Status: Acute Plan Acute encephalopathy: Possibly secondary to postictal status and has improved. Currently he is alert and oriented Had 1 episode of seizure yesterday no further seizures possibly precipitated by hyponatremia in the setting of bupropion.. Has underlying bipolar disorder/schizophrenia continue home quetiapine and aripiprazole will withhold bupropion which decreases seizure threshold. Psychiatry consulted. Acute hyponatremia: possibly secondary to increase in water intake as his urine sodium is 32, urine osm 120. However cannot completly rule out medication (Seroquel)/schizo induced SIADH. Presented with sodium of 117 but given his history of seizures and select confusion we will let it improve slightly faster than needed; also this hyponatremia may be acute that it induced the seizure so the risk for CPM is lower in him. Sodium slowly improved to 131 this morning, patient is alert and oriented; he on D5W at 150cc/hr. We will closely monitor his sodium every 4 hrs. regular diet Prophylaxis: Lovenox will transfer him to floor later in the afternoon if the sodium remains stable. Quality Stroke Does the patient have a stroke diagnosis?: No VTE Prior VTE?: No VTE Risk Level:: Medical - low VTE Device Contraindication: N/A - Device Ordered VTE Drug Contraindication: N/A - Med Ordered
[2025-03-10 09:19] LABS: Anion Gap 10 (12-20); Blood Urea Nitrogen 7 mg/dL (9-16); Calcium 8.6 mg/dL (8.4-10.2); Carbon Dioxide 26 mmol/L (22-29); Chloride 99 mmol/L (96-108); Creatinine Clr Calc Pharmacy 133.0; Estimated Glomerular Filt Rate > 60; Potassium 3.7 mmol/L (3.3-5.1); Sodium 131 mmol/L (135-145)
--- NOTE | 2025-03-10 09:42 | P.CDIM_ITS ---
PROVIDER RESPONSE TEXT: To clarify, the appropriate diagnosis supported by the clinical indicators: Metabolic QUERY TEXT: PHYSICIAN'S DOCUMENTATION REQUEST Date of Query: 03/10/2025 09:31 AM EDT Patient Name: Saqib Reid Admit Date: 03/09/2025 Dear Ayan Hidalgo MD, A review of the medical record indicates additional documentation may be needed. Please review below and update the documentation accordingly. Clinical Indicators: ICU H&P 03/09/25 - Acute encephalopathy. Hyponatremia, presented with sodium of 117, sodium improved to 131 this morning. On D5W at 150cc/hr. On arrival patient was confused, had 1 episode of seizure, continue to monitor closely. Based on the above, please further specify, in the Progress Notes, the known or suspected type of the documented encephalopathy: Metabolic Toxic Toxic metabolic Due to a specified condition (such as UTI, hyponatremia, CVA, etc.) Other (explain) Clinically unable to determine (explain) Thank you, Jane Gallego, CCS, CDIS Use of terms such as suspected, likely, concern for, or probable (associated with a specific diagnosis that is being evaluated, monitored, or treated as if it exists) are acceptable and can be coded in the inpatient setting, when documented at the time of discharge. Please use your independent medical judgment in providing your response. THIS QUERY IS PART OF THE PERMANENT MEDICAL RECORD
--- NOTE | 2025-03-10 10:18 | MHC.CM.PN ---
Addendum entered by Ana Cristina Ohara 03/10/25 15:36: Received call from [facility] who provides pt's community/wrap around services - pt is a [facility] client. [facility] coordinator inquiring on clinical progress and d/c plan. Referred her to [place]. Original Note: Pt receiving care in ICU: sleepy and having difficulty maintaining conversation. Call placed to [place] where pt had been prior to [facility]. Per Isidra RN, pt is a LT resident with an active [place] order and legal guardian. He requires cueing to complete ADL's but is able to eat independently. Per Isidra, pt can return to when he is medically cleared. Message left for Megan, pt's guardian. IMM in chart. BLS transport to . CM to follow.
--- NOTE | 2025-03-10 10:53 | PC.NURSE ---
Assume care @ 0700 Alert and oriented, RA, Clear lung sounds. Sinus Rhythm on tele. Regular diet, Unknown LBM. Utilizing a urinal. Abrasion to forehead s/p fall. Peripheral IV.? Plan : Iv fluids per NOV, chemistry lab q 4hr.
[2025-03-10 13:04] LABS: Anion Gap 10 (12-20); Blood Urea Nitrogen 6 mg/dL (9-16); Calcium 8.7 mg/dL (8.4-10.2); Carbon Dioxide 25 mmol/L (22-29); Chloride 102 mmol/L (96-108); Creatinine Clr Calc Pharmacy 134.4; Estimated Glomerular Filt Rate > 60; Potassium 3.9 mmol/L (3.3-5.1); Sodium 133 mmol/L (135-145)
[2025-03-10 17:10] LABS: Anion Gap 14 (12-20); Blood Urea Nitrogen 8 mg/dL (9-16); Calcium 9.0 mg/dL (8.4-10.2); Carbon Dioxide 21 mmol/L (22-29); Chloride 106 mmol/L (96-108); Creatinine Clr Calc Pharmacy 112.4; Estimated Glomerular Filt Rate > 60; Potassium 5.3 mmol/L (3.3-5.1); Sodium 136 mmol/L (135-145)
--- NOTE | 2025-03-10 18:19 | PC.NURSE ---
Report given by REAL Fodr and pt was tranferred to medr unit at 18:10
[2025-03-10 21:04] LABS: Anion Gap 11 (12-20); Blood Urea Nitrogen 8 mg/dL (9-16); Calcium 8.8 mg/dL (8.4-10.2); Carbon Dioxide 25 mmol/L (22-29); Chloride 104 mmol/L (96-108); Creatinine Clr Calc Pharmacy 126.2; Estimated Glomerular Filt Rate > 60; Potassium 4.0 mmol/L (3.3-5.1); Sodium 136 mmol/L (135-145)
[2025-03-11 01:30] LABS: Anion Gap 13 (12-20); Blood Urea Nitrogen 8 mg/dL (9-16); Calcium 8.5 mg/dL (8.4-10.2); Carbon Dioxide 24 mmol/L (22-29); Chloride 103 mmol/L (96-108); Creatinine Clr Calc Pharmacy 135.9; Estimated Glomerular Filt Rate > 60; Potassium 3.6 mmol/L (3.3-5.1); Sodium 136 mmol/L (135-145)
[2025-03-11 04:00] VITALS: BP 93/50; PULSE 53; RESP 16; TEMP 36.2; O2SAT 96
[2025-03-11 07:12] VITALS: BP 101/67; PULSE 60; RESP 18; TEMP 36.1; O2SAT 99
--- NOTE | 2025-03-11 08:50 | P.PNIM_ITS ---
Subjective Subjective Date of Service: 03/11/25 Interval History: no complaints Physical Exam 2 Vital Signs: Vital Signs: Last Vital Signs Temp 97.0 F 03/11/25 07:12 Pulse 60 03/11/25 07:12 Resp 18 03/11/25 07:12 BP 101/67 03/11/25 07:12 Pulse Ox 99 03/11/25 07:12 O2 Del Method Room Air 03/11/25 07:12 BMI result Body Mass Index 36.7 Alert, poor insight, flat affect, lungs clear, abdomen soft, heart sounds normal, no neuro deficits Objective Data Active Medications Aripiprazole (Aripiprazole 10 Mg Tablet) 25 mg PO BEDTIME [facility] Last Admin: 03/10/25 20:35 Dose: 25 mg Documented By: BRAULIO Enoxaparin Sodium (Enoxaparin Sodium 40 Mg/0.4 Ml Syringe) 40 mg SUBCUT Q24H [facility] Last Admin: 03/10/25 11:46 Dose: 40 mg Documented By: ILYA Famotidine (Famotidine/Pf 20 Mg/2 Ml Vial) 20 mg IVPUSH BID [facility] Last Admin: 03/10/25 20:35 Dose: 20 mg Documented By: BRAULIO Dextrose (D5w) 1,000 mls @ 150 mls/hr IVCONT .Q6H40M [facility] Last Admin: 03/11/25 02:20 Dose: 150 mls/hr Documented By: BRAULIO Quetiapine Fumarate (Quetiapine Fumarate 50 Mg Tablet) 50 mg PO BEDTIME [facility] Last Admin: 03/10/25 20:35 Dose: 50 mg Documented By: BRAULIO Labs 03/09/25 05:26 03/11/25 01:05 Labs: Laboratory Results - last 24 hr 03/10/25 03/10/25 03/10/25 08:51 12:39 16:31 Anion Gap 10 L 10 L 14 Estim Creat Clear Calc 133.0 134.4 112.4 Estimated GFR > 60 > 60 > 60 Random Glucose 100 103 80 Calcium 8.6 8.7 9.0 03/10/25 03/11/25 20:32 01:05 Anion Gap 11 L 13 Estim Creat Clear Calc 126.2 135.9 Estimated GFR > 60 > 60 Random Glucose 111 109 Calcium 8.8 8.5 Assessment and Plan (1) Acute hyponatremia: Status: Acute Plan 29M PMH bipolar, schizophrenia, came in from [facility] psych facility on 03/09/25 after seizure, found to have sodium of 117, admitted to icu, sodium now 136, downgraded 03/10/25 Seizure due to acute hyponatremia Consistent with primary polydipsia Sodium corrected faster than ideal, though low risk as likely acute, continue D5W, received 1 dose DDAVP, monitor sodium Holding bupropion Bipolar, schizophrenia From [facility], psychiatry following, continue Abilify and quetiapine, bupropion has been discontinued due to seizure DVT prophylaxis with Lovenox Full Code reason for continued hospitalization:d5w for sodium overcorrection Quality Stroke Does the patient have a stroke diagnosis?: No VTE Prior VTE?: No VTE Risk Level:: Medical - low VTE Device Contraindication: N/A - Device Ordered VTE Drug Contraindication: N/A - Med Ordered
[2025-03-11 09:11] LABS: Hemoglobin A1C 97.0570 umol/L; Total Hemoglobin (HGBA1C) 3722.4225 umol/L
--- NOTE | 2025-03-11 11:13 | MHC.CM.PN ---
Per MD rounds, patient not medically cleared for dc at this time, likely tomorrow. CM called [place], where patient is a [facility] resident of [facility] ([phone]). shelf drier operator Tonya is aware of likely dc tomorrow. Will need copy of dc summary sent w/ patient. CM will continue to follow.
--- NOTE | 2025-03-11 13:25 | PM.EVENT ---
Event Note Date of Service: 03/11/25 Event Note: Hyponatremia has resolved- may have been secondary to excess free water intake given low urine osm. SIADH may have contributed as well secondary to bipolar disorder and/or medications for its management. D5W to slow correction of hyponatremia may be discontinued now that sodium has normalized. Will sign off, happy to follow up if new changes or concerns arise. Discussed with Dr Hidalgo. Time Spent With Patient Time: Total time managing care of this patient today ____ minutes.
[2025-03-11 15:26] VITALS: BP 128/69; PULSE 59; RESP 18; TEMP 36.7; O2SAT 97
[2025-03-11 20:00] VITALS: BP 125/70; PULSE 64; RESP 18; TEMP 36.1; O2SAT 99
[2025-03-12 04:00] VITALS: BP 105/64; PULSE 65; RESP 18; TEMP 36.2; O2SAT 99
[2025-03-12 06:31] LABS: Hematocrit 38.5 % (42.0-52.0); Hemoglobin 13.8 g/dl (14.0-18.0); Mean Corpuscular HGB Conc 35.8 g/dl (31.0-36.0); Mean Corpuscular Hemoglobin 29.9 pg (27.0-33.0); Mean Corpuscular Volume 83.5 fL (80.0-98.0); NRBC Abs Auto 0.000 X10*3/uL (0.0-0.012); NRBC Pct Auto 0.0 /100WBC (0.0-0.2); Platelet Count 224 X10*3/uL (160-400); Red Blood Count 4.61 X10*6/uL (4.60-5.80); White Blood Count 8.6 X10*3/uL (4.8-10.8)
[2025-03-12 06:45] LABS: Alanine Aminotransferase 16 U/L (0-40); Albumin Level 3.7 g/dL (3.5-5.0); Alkaline Phosphatase 75 U/L (39-117); Anion Gap 11 (12-20); Aspartate Amino Transferase 52 U/L (5-37); Blood Urea Nitrogen 8 mg/dL (9-16); Calcium 8.5 mg/dL (8.4-10.2); Carbon Dioxide 24 mmol/L (22-29); Chloride 99 mmol/L (96-108); Creatinine Clr Calc Pharmacy 152.7; Estimated Glomerular Filt Rate > 60; Magnesium 1.8 mg/dL (1.6-2.6); Potassium 3.5 mmol/L (3.3-5.1); Sodium 130 mmol/L (135-145); Total Protein 5.7 g/dL (6.5-8.0)
[2025-03-12 06:59] VITALS: BP 115/63; PULSE 56; RESP 16; TEMP 36.6; O2SAT 98
--- NOTE | 2025-03-12 10:00 | P.PNNP_ITS ---
Subjective Subjective Date of Service: 03/12/25 Interval history: no complaints. Following for hyponatremia- worsened this a.m. from 136 to 130. patient and bedside staff report patient drinking lots of water yesterday/this a.m. and have removed water from reach. He is drinking gingerale. Physical Exam 2 Vital Signs: Vital Signs: Last Vital Signs Temp 97.9 F 03/12/25 06:59 Pulse 56 03/12/25 06:59 Resp 16 03/12/25 06:59 BP 115/63 03/12/25 06:59 Pulse Ox 98 03/12/25 06:59 O2 Del Method Room Air 03/12/25 06:59 BMI result Body Mass Index 36.7 Const: General: no acute distress, alert and awake Resp: Effort & Inspection: normal respiratory effort and able to speak in complete sentences Extrem: General: No edema Objective Data Labs 03/12/25 06:05 03/12/25 10:17 Labs: Laboratory Results - last 24 hr 03/12/25 03/12/25 06:05 10:17 WBC 8.6 RBC 4.61 Hgb 13.8 L Hct 38.5 L MCV 83.5 MCH 29.9 MCHC 35.8 RDW 13.0 Plt Count 224 MPV 9.0 L Absolute Nucleated RBC 0.000 Nucleated RBC % (auto) 0.0 Sodium 130 L 136 Potassium 3.5 3.9 Chloride 99 102 Carbon Dioxide 24 26 Anion Gap 11 L 12 BUN 8 L Creatinine 0.81 Estim Creat Clear Calc 152.7 Estimated GFR > 60 Random Glucose 87 Calcium 8.5 Magnesium 1.8 Total Bilirubin 0.3 Direct Bilirubin 0.1 AST 52 H ALT 16 Alkaline Phosphatase 75 Total Protein 5.7 L Albumin 3.7 Procedures Date of Service Date of Service: 03/12/25 Assessment & Plan Assessment and plan (1) Acute hyponatremia: Status: Acute Plan Hyponatremia- likely from excess free water intake. worsening- sodium dropped- at bedside patient and staff report that patient has been drinking excessive amounts of water. He is aware this is dropping his sodium and will stop drinking water, may drink gingerale and fluids with electrolytes. will check urine sodium and urine osm to reassess check BMP this afternoon to ensure sodium is not precipitously dropping given hx of severe hyponatremia c/b seizures. Discussed with Dr Hidalgo. Time Spent With Patient Time: Total time managing care of this patient today ____ minutes. Progress Note: Quality Stroke Does the patient have a stroke diagnosis?: No
[2025-03-12 10:34] LABS: Anion Gap 12 (12-20); Carbon Dioxide 26 mmol/L (22-29); Chloride 102 mmol/L (96-108); Potassium 3.9 mmol/L (3.3-5.1); Sodium 136 mmol/L (135-145)
--- NOTE | 2025-03-12 13:40 | MHC.CM.PN ---
Patient medically cleared for dc back to [place]. This CM spoke w/ Radha, RN who is aware of patient's return scheduled for 4pm BLS transport. Guardian, Megan, also aware of dc and agrees w/ plan.
[2025-03-12 14:44] LABS: Anion Gap 11 (12-20); Blood Urea Nitrogen 7 mg/dL (9-16); Carbon Dioxide 26 mmol/L (22-29); Chloride 106 mmol/L (96-108); Creatinine Clr Calc Pharmacy 140.5; Estimated Glomerular Filt Rate > 60; Potassium 4.5 mmol/L (3.3-5.1); Sodium 138 mmol/L (135-145)
[2025-03-12 14:45] LABS: Uric Acid 5.5 mg/dL (3.4-7.0)
[2025-03-12 15:01] LABS: Calcium 9.6 mg/dL (8.4-10.2)
[2025-03-12 15:16] VITALS: BP 136/84; PULSE 78; RESP 16; TEMP 36.6; O2SAT 98
--- NOTE | 2025-03-12 15:26 | P.DS_ITS ---
DS: Providers Provider Date of Service: 03/12/25 Date of admission: 03/09/25 10:21 Date of discharge: 03/12/25 Primary care physician: Unknown Physician Attending physician on admission: Ayan Hidalgo Consults: 03/09/25 10:23 Consult to Psychiatry Routine Consulting Provider: [facility] Psych Covering Reason for consultation: makenna Has provider been notified: No 03/11/25 08:55 Consult to Nephrology Routine Consulting Provider: [facility] Reason for consultation: hyponatremia Attending physician on discharge: Marco Antonio Logan Discharging clinician: Lori Mars DS: Diagnosis Discharge Diagnosis (1) Acute hyponatremia: Status: Acute DS: Summary Hospital Course Hospital Course: HPI on admission to ICU by Dr Hidalgo on 03/09: Chief Complaint: Seizures 29-year-old male with significant history of bipolar disorder, other psychiatric illness and no medical illness, no history of seizures has been managed for past few days being hyperactive. This morning around 04:00 the tech heard a loud sound from him falling on his face so as to his room when he had a seizures that lasted about 2 minutes and stopped by itself. He has a small laceration on his forehead so was brought into the ED. In the ED his sodium was found to be 117 so MICU was consulted Interval history: 29-year-old male admitted to ICU following a seizure related to severe hyponatremia with probable postictal status. Presented with sodium level of 117. He was also taking Wellbutrin at the same time likely lowering his seizure threshold. Urine sodium was less than 20, urine osmolality 120, hyponatremia likely secondary to increase in free water. Question psychogenic polydipsia. Hypertonic NS was withheld but Na did still overcorrect 117-->131. He was then treated with D5w with stabilization of levels. Mental status improved to baseline with stabilization. Nephrology also evaluated and followed patient. Transferred to med surg D2 with stable Na at 136. Morning of DC Na was 130 as he has been drinking large amounts of water and gingerale and was rechecked with level 136 and then rechecked hours later and was 138. Based on labs, specialist consultation, and observation, hyponatremia is likely due to primary polydipsia. He will be discharged with recommendations for fluid restrictions 1.2L and avoidance of wellbutrin. Seen and evaluated by psychiatry-can continue all other psychotropic medications. Status at Discharge Overall status at discharge: patient is progressing back to baseline Time Attestation Discharge Coordination Time (in mins): 45 Quality: Safe Use of Opioids Does Pt have an Active Cancer Diagnosis on the Problem List?: No Quality: Stroke Does the patient have a stroke diagnosis?: No Physical Exam Vital Signs: Vital Signs: Last Vital Signs Temp 98 F 03/12/25 15:16 Pulse 78 03/12/25 15:16 Resp 16 03/12/25 15:16 BP 136/84 03/12/25 15:16 Pulse Ox 98 03/12/25 15:16 O2 Del Method Room Air 03/12/25 15:16 BMI result Body Mass Index 36.7 DS: Data Data Completed and Pending Labs on day of discharge: Laboratory Results - last 24 hr 03/12/25 03/12/25 03/12/25 06:05 10:17 11:45 WBC 8.6 RBC 4.61 Hgb 13.8 L Hct 38.5 L MCV 83.5 MCH 29.9 MCHC 35.8 RDW 13.0 Plt Count 224 MPV 9.0 L Absolute Nucleated RBC 0.000 Nucleated RBC % (auto) 0.0 Sodium 130 L 136 Potassium 3.5 3.9 Chloride 99 102 Carbon Dioxide 24 26 Anion Gap 11 L 12 BUN 8 L Creatinine 0.81 Estim Creat Clear Calc 152.7 Estimated GFR > 60 Random Glucose 87 Uric Acid Calcium 8.5 Magnesium 1.8 Total Bilirubin 0.3 Direct Bilirubin 0.1 AST 52 H ALT 16 Alkaline Phosphatase 75 Total Protein 5.7 L Albumin 3.7 Urine Osmolality 91 L Ur Random Sodium 27.0 Ur Random Potassium 5.7 Ur Random Chloride 27.0 03/12/25 14:01 WBC RBC Hgb Hct MCV MCH MCHC RDW Plt Count MPV Absolute Nucleated RBC Nucleated RBC % (auto) Sodium 138 Potassium 4.5 Chloride 106 Carbon Dioxide 26 Anion Gap 11 L BUN 7 L Creatinine 0.88 Estim Creat Clear Calc 140.5 Estimated GFR > 60 Random Glucose 91 Uric Acid 5.5 Calcium 9.6 D Magnesium Total Bilirubin Direct Bilirubin AST ALT Alkaline Phosphatase Total Protein Albumin Urine Osmolality Ur Random Sodium Ur Random Potassium Ur Random Chloride Discharge Plan Discharge Anticipated Discharge Date/Time: 03/12/25 15:42 Patient Disposition: Xfer Psychiatric Hosp Discharge Diagnosis: Seizure, hyponatremia Referrals: [facility] [Outside] - 1 Day Referral Note: continue your inpatient psychiatric care Physician,Unknown J [Primary Care Provider, Medical] - 1 Week Discharge Medications: Continued multivitamin Tablet 1 tab PO DAILY hydroxyzine pamoate 50 mg Capsule 50 mg PO Q8H PRN (Reason: Anxiety) melatonin 3 mg Tablet 3 mg PO BEDTIME metformin 1,000 mg Tablet 1,000 mg PO BIDWM bismuth subsalicylate [Bismuth] 262 mg Tablet,Chewable 1 tab PO Q4H PRN (Reason: Dyspepsia) Rx Instructions: do not exceed 16 tabs per 24 hrs alum-mag hydroxide-simeth [Antacid] 200-200-20 mg/5 mL Suspension 30 ml PO BID PRN (Reason: Dyspepsia) Rx Instructions: administer between meals and at bedtime escitalopram oxalate 20 mg Tablet 20 mg PO BEDTIME aripiprazole 10 mg Tablet 25 mg PO BEDTIME quetiapine 50 mg Tablet 50 mg PO BEDTIME acetaminophen 325 mg Tablet 650 mg PO Q6H PRN (Reason: Pain (Scale Score 1-3)) Discontinued bupropion HCl 300 mg Tablet Extended Release 24 Hr 300 mg PO DAILY bupropion HCl 150 mg Tablet Extended Release 24 Hr 150 mg PO DAILY Discharge Orders: Discharge Order (Routine); Ordered 03/12/25 Ordered By: Lori Mars Diet: Advance to usual diet Activity on Discharge: As tolerated Stand Alone Forms: Patient Portal Discharge page Print Language: Persian Care Plan Goals: Transfer back to psychiatric facility Avoid wellbutrin which will lower seizure threshold Fluid restrictions to 1.2L Health Concerns: Hyponatremia resulting in seizure Primary polydipsia Plan of Treatment: As above Assessment: As above. See DC summary Patient Instructions: Hyponatremia (DC), Epilepsy (DC) Discharge Date/Time: 03/12/25 16:20
== END 2025-03-12 16:20 | DRG 641 ==
LOC: HO.ED 07:31 → HO.EDOVER 10:46 → HO.ICU 11:52 → HO.S3 03-10 16:50
PROVIDERS: Internal Medicine; Admitting Provider Internal Medicine Critical Care Medicine; Emergency Provider Emergency Medicine; Visit Provider Physician Assistant
DX: E87.1 Hypo-osmolality and hyponatremia (principal); F20.0 Paranoid schizophrenia; R56.9 Unspecified convulsions; Z79.84 Long term (current) use of oral hypoglycemic drugs; Z79.899 Other long term (current) drug therapy
CPT/HCPCS: 36415; 70450; 70486; 72125; 80048; 80051; 80053; 80076; 80307; 82436; 83036; 83605; 83735; 83930; 83935; 84133; 84145; 84300; 84550; 85025; 85027; 93005; 99285; J1308; J1650; J2405; J2597

== ENCOUNTER → 2025-03-09 05:14 | Outpatient (BNV) | payer OTHER, SELFPAY | PROVIDERS: Admitting Provider Internal Medicine Critical Care Medicine; Emergency Provider Emergency Medicine; Visit Provider Internal Medicine Cardiovascular Disease | DX: Z13.6 Encounter for screening for cardiovascular disorders (principal); W19.XXXA Unspecified fall, initial encounter | CPT/HCPCS: 93010 ==

== ENCOUNTER → 2025-03-09 05:30 | Outpatient (BNV) | payer OTHER, SELFPAY | PROVIDERS: Emergency Provider Emergency Medicine; Visit Provider Radiology Diagnostic Radiology | DX: S09.90XA Unspecified injury of head, initial encounter (principal); S09.93XA Unspecified injury of face, initial encounter; S00.03XA Contusion of scalp, initial encounter; W19.XXXA Unspecified fall, initial encounter | CPT/HCPCS: 70450; 70486; 72125 ==

== ENCOUNTER → 2025-03-09 10:21 | Outpatient (BNV) | payer OTHER, SELFPAY | PROVIDERS: Admitting Provider Internal Medicine Critical Care Medicine; Emergency Provider Emergency Medicine; Visit Provider Nurse Practitioner Family | DX: E87.1 Hypo-osmolality and hyponatremia (principal) | CPT/HCPCS: 99231; 99499 ==

== ENCOUNTER → 2025-03-09 10:21 | Outpatient (BNV) | payer OTHER, SELFPAY | PROVIDERS: Admitting Provider Internal Medicine Critical Care Medicine; Emergency Provider Emergency Medicine; Visit Provider Internal Medicine | DX: E87.1 Hypo-osmolality and hyponatremia (principal) | CPT/HCPCS: 99233 ==

== ENCOUNTER → 2025-03-09 10:21 | Outpatient (BNV) | payer OTHER, SELFPAY | PROVIDERS: Admitting Provider Internal Medicine Critical Care Medicine; Emergency Provider Emergency Medicine; Visit Provider Internal Medicine Critical Care Medicine | DX: E87.1 Hypo-osmolality and hyponatremia (principal); G93.40 Encephalopathy, unspecified; R56.9 Unspecified convulsions | CPT/HCPCS: 99223 ==

== ENCOUNTER → 2025-03-09 10:21 | Outpatient (BNV) | payer OTHER, SELFPAY | PROVIDERS: Admitting Provider Internal Medicine Critical Care Medicine; Emergency Provider Emergency Medicine; Visit Provider Social Worker | DX: F20.0 Paranoid schizophrenia (principal) | CPT/HCPCS: 99232 ==

== ENCOUNTER 2025-05-18 14:01 | Outpatient (REF) | payer OTHER, SELFPAY ==
[2025-05-18 17:40] LABS: MANUAL DIFF FLAG NO
[2025-05-18 17:49] LABS: Hematocrit 43.8 % (42.0-52.0); Hemoglobin 15.3 g/dl (14.0-18.0); Imm Gran Pct Auto 0.3 % (0.0-0.4); Mean Corpuscular HGB Conc 34.9 g/dl (31.0-36.0); Mean Corpuscular Hemoglobin 30.5 pg (27.0-33.0); Mean Corpuscular Volume 87.3 fL (80.0-98.0); Platelet Count 265 X10*3/uL (160-400); Red Blood Count 5.02 X10*6/uL (4.60-5.80); White Blood Count 7.9 X10*3/uL (4.8-10.8)
[2025-05-18 17:50] LABS: Imm Gran Abs Auto 0.02 X10*3/uL (0.00-0.03); Lymphocytes Absolute Auto 1.9 X10*3/uL (1.2-4.9); NRBC Abs Auto 0.000 X10*3/uL (0.0-0.012); NRBC Pct Auto 0.0 /100WBC (0.0-0.2)
[2025-05-18 18:16] LABS: Alanine Aminotransferase 18 U/L (0-40); Albumin Level 4.5 g/dL (3.5-5.0); Alkaline Phosphatase 89 U/L (39-117); Anion Gap 12 (12-20); Aspartate Amino Transferase 28 U/L (5-37); Blood Urea Nitrogen 11 mg/dL (9-16); Calcium 9.1 mg/dL (8.4-10.2); Carbon Dioxide 24 mmol/L (22-29); Chloride 108 mmol/L (96-108); Cholesterol 109 mg/dL (<200); Estimated Glomerular Filt Rate > 60; HDL Cholesterol 29 mg/dL (>40); Magnesium 2.1 mg/dL (1.6-2.6); Potassium 4.1 mmol/L (3.3-5.1); Sodium 140 mmol/L (135-145); Total Protein 6.9 g/dL (6.5-8.0); Triglycerides 79 mg/dL (<150)
[2025-05-19 08:42] LABS: HBS Num1 0.24 mIU/mL (0-7.99); HBsAGNum1 0.38 S/CO (0.00-0.99); HIV Num 1 0.05 S/CO (0.00-0.99); Hepatitis B Surface Antigen Negative (Negative); ~HepC Num1 0.09 S/CO (0.00-0.79); ~Hepatitis B Surface Antibody NONREACTIVE (Nonreactive); ~Hepatitis C Antibody Nonreactive (Nonreactive)
[2025-05-25 15:59] LABS: VITAMIN D (1,25 OH) D3 42 pg/mL; Vit D (1,25-Dihydroxy) Total 42 pg/mL (18-72); Vitamin D (1,25 OH) D2 <8 pg/mL
== END 2025-05-18 14:02 | disposition home or self-care (01) ==
LOC: HO.HKASLDS 14:01
PROVIDERS: Visit Provider Student in an Organized Health Care Education/Training Program
DX: Z76.89 Persons encountering health services in other specified circumstances (principal); F20.9 Schizophrenia, unspecified; Z71.9 Counseling, unspecified; Z79.899 Other long term (current) drug therapy; Z11.4 Encounter for screening for human immunodeficiency virus [HIV]; Z13.1 Encounter for screening for diabetes mellitus; Z13.6 Encounter for screening for cardiovascular disorders
CPT/HCPCS: 36415; 80053; 80061; 82652; 83036; 83735; 84443; 85025; 86706; 86803; 87340; 87389; 99202

== ENCOUNTER 2025-05-18 14:01 | Outpatient (AMB) | payer OTHER, SELFPAY ==
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
[2025-05-18 14:11] VITALS: BP 90/60; PULSE 70; RESP 16; TEMP 36.7; O2SAT 98; BMI 32.7
--- OUTSIDE RECORDS SUMMARY | 2025-05-18 19:23 | XMS_ITS | Clinical Summary ---
Author Organization [facility] Facility Address [address] [place] [address] Care Team Providers Care Fuel Verification Technician Name Role Phone Unavailable Primary Care Provider Unavailabl e Medications hydrOXYzine (VISTARIL) 50 MG capsule Take 50 mg by mouth 1 (one) time each day Active QUEtiapine (SEROquel) 50 MG tablet Take 50 mg by mouth every night Active ARIPIPRAZOLE PO Take 2.5 mg by mouth 1 (one) time each day Active escitalopram (LEXAPRO) 20 MG tablet Take 20 mg by mouth 1 (one) time each day Active Melatonin-Pyrido xine (MELATONEX PO) Take 3 mg by mouth 1 (one) time each day Active acetaminophen (TYLENOL) 650 MG suppository Insert 650 mg into the rectum every 4 (four) hours if needed for mild pain Active magnesium 30 MG tablet Take 30 mg by mouth in the morning and 30 mg in the evening. Active Polyethylene Glycol 3350 4 g pack Take by mouth Active buPROPion (ZYBAN) 150 MG 12 hr tablet Take 150 mg by mouth in the morning and 150 mg in the evening. Do not crush, chew, or split. Active Active Problems Problem Noted Date Diagnosed Date Hypo-osmolality and hyponatremia 04/16/2025 Encounters Date Type Department Care Team Description 04/16/2025 10:15 AM EDT Office Visit [facility] [address] [facility] [address] [place] [id number] Saran Tran MD Hypo-osmolality and hyponatremia (Primary Dx) from Last 3 Months Social History Tobacco Use Types Packs/Day Years Used Date Smoking Tobacco: Former Cigarettes Tobacco Cessation:Counseling Given: Not Answered Alcohol Use Standard Drinks/Week Comments Not Currently 0 (1 standard drink = 0.6 oz pur e alcohol) Sex and Gender Information Value Date Recorded Sex Assigned at Not on file Legal Sex Male 6:37 PM EDT Gender Identity Not on file Sexual Orientation Not on file Last Filed Vital Signs Vital Sign Reading Time Taken Comments Blood Pressure 124/62 04/16/2025 10:39 AM EDT Pulse 80 04/16/2025 10:39 AM EDT Temperature - - Respiratory Rate - - Oxygen Saturation 96% 04/16/2025 10:39 AM EDT Inhaled Oxygen Concentration - - Weight 97.7 kg (215 lb 6.4 oz) 04/16/2025 10:39 AM EDT Height - - Body Mass Index - - Plan of Treatment Health Maintenance Due Date Last Done Comments Hepatitis B Vaccine (1 of 3 - 19+ 3-dose series) 2015 Influenza Vaccine (#1) 2025 Pneumococcal Vaccine: Peds ( 0 to 5 Years) and At-Risk Patients (6 to 49 Years) Aged Out No longer eligible b ased on patient's age to complete this topic [place] [address] L[place] THORPE [id number]
== END 2025-05-18 14:37 | disposition home or self-care (01) ==
LOC: HO.HMCFMS 14:02
PROVIDERS: PCP Student in an Organized Health Care Education/Training Program; Visit Provider Student in an Organized Health Care Education/Training Program
DX: Z76.89 Persons encountering health services in other specified circumstances (principal); Z01.89 Encounter for other specified special examinations; Z13.9 Encounter for screening, unspecified; Z71.9 Counseling, unspecified; Z13.6 Encounter for screening for cardiovascular disorders; Z13.1 Encounter for screening for diabetes mellitus; Z13.220 Encounter for screening for lipoid disorders; F20.9 Schizophrenia, unspecified